=== PATIENT | female | born 1950 | race Caucasian/White ===

== ENCOUNTER 2018-09-29 01:42 | Outpatient (CLI) | payer MEDICARE, OTHER, SELFPAY ==
--- NOTE | 2018-09-29 11:30 | DI.MAMMO_ITS ---
SYMPTOM/DIAGNOSIS: SCREENING Z12.31 MAMMOGRAMS: Mammograms were interpreted according to the usual protocol including computer analysis with CAD system, tomosynthesis and C view imaging. Comparison with prior examinations. Breast density B. No suspicious masses or microcalcifications are seen. There is no definite evidence of malignancy. IMPRESSION: Negative mammogram. Routine screening is recommended. Category 1, breast density B. SA ASSESSMENT OF FINDINGS: Negative. Category 1. Patient will receive a letter notifying them of these results. BI-RADS category B. There are scattered areas of fibroglandular density.
== END 2018-09-29 02:02 ==
PROVIDERS: Visit Provider Nurse Practitioner Family
DX: Z12.31 Encounter for screening mammogram for malignant neoplasm of breast (principal)
CPT/HCPCS: 77063; 77067

== ENCOUNTER → 2019-11-26 08:31 | Outpatient (BNVA) | payer MEDICARE, OTHER, SELFPAY | PROVIDERS: Visit Provider Student in an Organized Health Care Education/Training Program | DX: M25.562 Pain in left knee (principal); M17.12 Unilateral primary osteoarthritis, left knee; M21.062 Valgus deformity, not elsewhere classified, left knee | CPT/HCPCS: 20610; 99203; J1040 ==

== ENCOUNTER 2020-02-09 14:19 | Outpatient (CLI) | payer MEDICARE, OTHER, SELFPAY ==
--- NOTE | 2020-02-09 14:10 | DI.RAD_ITS ---
EXAM: XR STANDING ALIGNMENT CLINICAL HISTORY: pre op TECHNIQUE: 2D digital imaging was performed. COMPARISON: No exams were available for comparison FINDINGS: Standing AP views were performed from the pelvis through the ankles. There are severe degenerative c hanges of the lateral femoral tibial joint of the left knee causing prominent valgus angulation. The re are milder degenerative changes of the right knee as well as both hips and ankles. There is a leg length discrepancy at the level of the femoral heads, with the right femoral head projecting approxi mately 1 cm superior to the left. IMPRESSION: Severe degenerative changes of the lateral femoral tibial joint of the left knee with valgus angulati on..
== END 2020-02-09 14:39 ==
PROVIDERS: PCP Family Medicine; Referring Provider Family Medicine; Visit Provider Physician Assistant
DX: M17.12 Unilateral primary osteoarthritis, left knee (principal); M21.751 Unequal limb length (acquired), right femur
CPT/HCPCS: 77073

== ENCOUNTER 2020-02-12 01:40 | Outpatient (CLI) | payer MEDICARE, OTHER, SELFPAY ==
[2020-02-12 13:52] LABS: HCT 42.8 % (36.0-46.0); HGB 14.6 g/dL (11.2-15.7); MCH 32.7 pg (27.0-33.0); MCHC 34.1 % (32.0-36.0); MCV 95.7 fL (80-95); MPV 8.8 fL (8.0-11.0); Platelet Count 301 10^3/uL (130-400); RBC 4.47 10^6/uL (3.93-5.22); RDW 11.7 % (11.7-14.6); RDW-SD 41.1 fL; WBC 6.83 10^3/uL (4.4-10.8)
[2020-02-12 14:31] LABS: Anion Gap 4.6 mmol/L (3-11); BUN 18 mg/dL (7-18); CO2 31.4 mmol/L (21.0-32.0); CREATININE 0.66 mg/dL (0.55-1.02); Chloride 106 mmol/L (98-107); Glucose 104 mg/dL (74-106); Potassium 3.7 mmol/L (3.5-5.1); Sodium 142 mmol/L (136-145)
== END 2020-02-12 02:00 ==
PROVIDERS: PCP Family Medicine; Visit Provider Student in an Organized Health Care Education/Training Program
DX: Z01.818 Encounter for other preprocedural examination (principal); Z11.59 Encounter for screening for other viral diseases; M17.12 Unilateral primary osteoarthritis, left knee
CPT/HCPCS: 36415; 80048; 85027; U0003

== ENCOUNTER 2020-02-17 07:22 | Observation (INO) | payer MEDICARE, OTHER, SELFPAY ==
[2020-02-17] VITALS (13 sets, daily range): BP systolic 88–121; BP diastolic 49–66; PULSE 65–84; RESP 9–21; TEMP 36.1–37.1; O2SAT 94–99
[2020-02-17] MEDS: Celecoxib 200 MG CAP 400 MG PO (08:13)
[2020-02-17] MEDS: Gabapentin 300 MG CAP PO ×2 (08:13→21:47)
[2020-02-17] MEDS: Acetaminophen 500 MG TAB 1000 MG PO ×3 (08:14→19:34)
[2020-02-17] MEDS: Lactated Ringers 1,000 ML 80 ML IV ×3 (08:35→17:40)
--- NOTE | 2020-02-17 09:25 | DSE_ITS ---
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 The surgery was tolerated well without any notable medical, surgical, or anesthetic complications. Mobilization began post-operatively. They were voiding spontan eously. Vitals were stable. Physical therapy worked with the patient and was cleared for discharge home. No acute medical issues. Pain was controlled on oral regimen. Home Meds and New Rx's Prescriptions: New acetaminophen 500 mg tablet 1,000 mg PO Q8H PRN (Reason: pain) Qty: 60 RF: 2 aspirin 81 mg tablet,delayed release (DR/EC) 81 mg PO BID 30 Days Qty: 60 RF: 0 celecoxib [Celebrex] 200 mg capsule 200 mg PO BID Qty: 60 RF: 1 docusate sodium [Colace] 100 mg capsule 100 mg PO BID Qty: 30 RF: 0 oxycodone 5 mg tablet 5 mg PO Q4H PRN (Reason: severe post-operative pain) Qty: 18 RF: 0 pantoprazole 40 mg tablet,delayed release (DR/EC) 40 mg PO DAILY Qty: 30 RF: 0 Continued Move Free Joint Health 1 EACH tablet 2 ea PO DAILY RF: 0 Discharge Instructions Additional Instructions: Total Knee Discharge Instructions Activity: The most important activity is to walk. You should try to take short walks a few times a day. It is important that when resting you work on keeping the knee straight. Avoid putting a pillow behind the knee as this will encourage flexion. Work on range of motion exercises as provided by Physical Therapy. - Start outpatient physical therapy within 2 weeks. - You should wear the HERACLIO hose on both legs for 2 weeks. Dressing: Keep the surgical dressing in place for at least one week. After the first week it may be removed and replace with light gauze and tape or nothing. It may get wet after 3 days but avoid soaking the dressing. If it gets wet, just lightly pat dry. Medications: - You should take Tylenol and anti-inflammatory Celebrex as your primary pain control medications. If the Celebrex is too expensive or not covered, you may take Naproxen (Aleve) two tabs twice a day in its place. - You have been prescribed a stronger pain medication Oxycodone for breakthrough pain, take as needed as prescribed. - You have also been prescribed a stomach acid reduction agent Pantoprozole to help reduce stomach acid and reflux. - You will be taking Aspirin 81mg twice a day for DVT prevention unless instructed otherwise. - If you have constipation you should take Colace or Miralax (both [id number]). It takes most people 3-4 days to have a bowel movement. Follow-up: 2 weeks. If you have any acute concerns or questions, please do not hesitate to contact the office at [phone]. You may contact Dr. Dey with any questions after hours through the hospital at [phone] or on his cell phone at [phone]. Referrals: Dung Dey MD [ [facility] STAFF PHYSICIAN] - 03/04/20 9:00 am Activity:: Activity as Tolerated Equipment/Supplies:: Walker Diet:: As Tolerated Discharge Orders Discharge Orders: Discharge Order (Routine); Ordered 02/17/20 Ordered By: Dung Dey DS: Data Vitals/I&O Vitals and I&O: Vital Signs Temperature 36.3 C L 02/17/20 07:37 Pulse 67 02/17/20 07:37 Pulse Rhythm Regular 02/17/20 07:37 Respiratory Rate 16 02/17/20 07:37 Respiratory Effort 02/17/20 07:37 Respiratory Depth Normal 02/17/20 07:37 Respiratory Pattern Normal 02/17/20 07:37 Blood Pressure 121/66 02/17/20 07:37 Pulse Oximetry 98 02/17/20 07:37 Oxygen Delivery Method Room Air 02/17/20 07:37 Oxygen Flow Rate 0 02/17/20 07:37 Pain Level 0 02/17/20 07:37 Intake & Output 02/16/20 02/16/20 02/17/20 11:59 23:59 11:59 Weight 70.1 kg Other: Urine Appearance Clear PFSH Surgical History Appendectomy Hx of colonoscopy Ligation of fallopian tube Status post abdominoplasty Status post plastic surgery Bilateral thighplasty Family History Mother No problems noted. Father Pancreatic cancer Diabetes Parkinsons disease Social History Smoking/Tobacco Use Status: Never Smoking risk assessment performed?: Yes Alcohol Intake: current Alcohol Intake frequency: holidays/special occasions only Drug use: Never Substance use type: does not use current occupation: retired - banker History History 3 Para 3 Hx # Term Pregnancies Multiple births Hx # Pregnancies Ectopic pregnancies AB induced Hx Number of Living Children AB spontaneous Documented by User: Dung Dey MD 02/17/20 15:24 Date of service: 02/17/20 Time of Service: 15:22 Discharge Plan Disposition Patient Disposition: HOME Condition: Good Discharge Details Reason For Visit: Left TKA Admit Date/Time: 02/17/20 07:21 Admit Provider: Dung Dey Attending Provider: Dung Dey Primary Care Provider: Mariaelena Florez [facility] Course Hospital Course: Patient was admitted to the day surgery unit following the procedure. The surgery was tolerated well without any notable medical, surgical, or anesthetic complications. Mobilization began post-operatively. They were voiding spontaneously. Vitals were stable. Physical therapy worked with the patient and was cleared for discharge home. No acute medical issues. Pain was controlled on oral regimen. Home Meds and New Rx's Prescriptions: New acetaminophen 500 mg tablet 1,000 mg PO Q8H PRN (Reason: pain) Qty: 60 RF: 2 aspirin 81 mg tablet,delayed release (DR/EC) 81 mg PO BID 30 Days Qty: 60 RF: 0 celecoxib [Celebrex] 200 mg capsule 200 mg PO BID Qty: 60 RF: 1 docusate sodium [Colace] 100 mg capsule 100 mg PO BID Qty: 30 RF: 0 oxycodone 5 mg tablet 5 mg PO Q4H PRN (Reason: severe post-operative pain) Qty: 18 RF: 0 pantoprazole 40 mg tablet,delayed release (DR/EC) 40 mg PO DAILY Qty: 30 RF: 0 Continued Move Free Joint Health 1 EACH tablet 2 ea PO DAILY RF: 0 Discharge Instructions Additional Instructions: Total Knee Discharge Instructions Activity: The most important activity is to walk. You should try to take short walks a few times a day. It is important that when resting you work on keeping the knee straight. Avoid putting a pillow behind the knee as this will encourage flexion. Work on range of motion exercises as provided by Physical Therapy. - Start outpatient physical therapy within 2 weeks. - You should wear the HERACLIO hose on both legs for 2 weeks. Dressing: Keep the surgical dressing in place for at least one week. After the first week it may be removed and replace with light gauze and tape or nothing. It may get wet after 3 days but avoid soaking the dressing. If it gets wet, just lightly pat dry. Medications: - You should take Tylenol and anti-inflammatory Celebrex as your primary pain control medications. If the Celebrex is too expensive or not covered, you may take Naproxen (Aleve) two tabs twice a day in its place. - You have been prescribed a stronger pain medication Oxycodone for breakthrough pain, take as needed as prescribed. - You have also been prescribed a stomach acid reduction agent Pantoprozole to help reduce stomach acid and reflux. - You will be taking Aspirin 81mg twice a day for DVT prevention unless instructed otherwise. - If you have constipation you should take Colace or Miralax (both [id number]). It takes most people 3-4 days to have a bowel movement. Follow-up: 2 weeks. If you have any acute concerns or questions, please do not hesitate to contact the office at [phone]. You may contact Dr. Dey with any questions after hours through the hospital at [phone] or on his cell phone at [phone]. Referrals: Dung Dey MD [ [facility] STAFF PHYSICIAN] - 03/04/20 9:00 am Activity:: Activity as Tolerated Equipment/Supplies:: Walker Diet:: As Tolerated Discharge Orders Discharge Orders: Discharge Order (Routine); Ordered 02/17/20 Ordered By: Dung Dey DS: Summary Status at Discharge Functional status at discharge: uses cane/walker Overall status at discharge: patient is progressing back to baseline Mental Status: mental status grossly normal Speech and Movement: speech and movement normal Mood: congruent mood Affect: normal affect Exam Psych Mental Status: mental status grossly normal Speech and Movement: speech and movement normal Mood: congruent mood Affect: normal affect [facility] Surgical History Appendectomy Hx of colonoscopy Ligation of fallopian tube Status post abdominoplasty Status post plastic surgery Bilateral thighplasty Family History Mother No problems noted. Father Pancreatic cancer Diabetes Parkinsons disease Social History Smoking/Tobacco Use Status: Never Smoking risk assessment performed?: Yes Alcohol Intake: current Alcohol Intake frequency: holidays/special occasions only Drug use: Never Substance use type: does not use current occupation: retired - banker History History 3 Para 3 Hx # Term Pregnancies Multiple births Hx # Pregnancies Ectopic pregnancies AB induced Hx Number of Living Children AB spontaneous
[2020-02-17] MEDS: Bupivacaine 0.25% Pres-Free 10 ML VIAL (09:29)
[2020-02-17] MEDS: ceFAZolin 2 GM/50 ML BAG IVPB (09:59)
[2020-02-17] MEDS: Bupivacaine 0.25% Pres-Free 30 ML VIAL (11:31)
[2020-02-17] MEDS: Ketorolac 30 MG/ML VIAL (11:31)
[2020-02-17] MEDS: Normal Saline 20 ML VIAL (11:31)
--- NOTE | 2020-02-17 13:30 | NUR.NOTE ---
Nursing Note: 02/17/20 1330- pt alert and oriented x 3. Hr reg, lscta, positive bs x 4. Positive csmt, positive pp ble. Pt denies chest pain/ pressure. Pt denies sob/ nausea. VSS. TEDS on right leg, dressing with jessica wrap CDI l leg. Pt arrived to [facility]SU room 215 at 1320. in to see patient shortly after arrival. cryo cuff on l knee.
[2020-02-17] MEDS: ceFAZolin 1 GM/50 ML BAG IVPB (15:28)
--- NOTE | 2020-02-17 15:50 | IN_ITS ---
Date of service: 02/17/20 Time of Service: 15:51 PT Notes Visit Reasons: Left TKA Date: 02/17/2020 Referring: Dung Dye MD MD diagnosis: Status post left TKA PT diagnosis: Status post left TKA Subjective: Alert and oriented x3, with complaints of nausea after walking 100 feet. This resolved with rest. Objective: 61-year-old female with osteoarthritis of left knee status post left total knee replacement earlier today. Functional mobility: Independent with assuming the supine to sitting to standing positions Gait: Ambulated approximately 200 feet with a wheeled walker weightbearing as tolerated on her left lower extremity. She ascended and descended 4 steps with a railing. Articular: Her active assistive left knee motion is nonirritable and her range is -10 degrees of extension to 100 degrees of flexion following mobilization. Her internal rotations at 10 degrees and external rotation at 30 degrees. She is nonirritable left hip, talocrural subtalar movements. Strength: She is able to form concentric left straight leg raise with approximately 10 degree extension lag. Social: , retired for 7 years, has a winter home in [place]. Lives in a two-story home in her bedroom is on the second floor. She has a railing on the stairs. She is independent with all ADLs including driving prior to her surgery. Neuro: Has full motor control left lower extremity with diminished sensation light touch to her left foot due to to the anesthesia. Treatment: 9716 Assessment: Patient is a 69-year-old female referred for PT services diagnosis of left TKA. Patient presents with clinical signs and symptoms consistent. She did well with her mobility activities and gait and range of motion about to 100 degrees of flexion. Short-term goals: 6 weeks Increase range of motion of the left knee from -10 to 120 degrees Improve dynamic stability of the left lower leg in order to normalize her gait mechanics without an assistive device Independent all ADLs Long-term goals: 12 weeks Improve her quality of life Plan: Today's session consisted of evaluation, patient education, manual mobilization of the left knee along with issuing her written illustrated home exercise program consisting of gentle stretching into left knee extension flexion, supine straight leg raises, quad/gluteal sets and ankle pumping. Keep her leg elevated over the next 3 days and walk for short distances as tolerated. She will pursue physical therapy at home. DC from our service. Disclaimer: This note was created using [employer] voice recognition software. It was reviewed for major content. However, there may be multiple small discrepancies and errors due to the voice recognition aspects of the software. Please sign and return this document to [facility] as soon as possible if you agree with the above POC. Thank you. Provider Signature Date [facility]
--- NOTE | 2020-02-17 18:42 | W.PM.OP ---
Date of service: 02/17/20 Time of Service: 12:05 Operative Note Operative Note DATE OF PROCEDURE: 02/17/20 PRE-OP DIAGNOSIS: Left Knee DJD with Valgus Deformity POST-OP DIAGNOSIS: same PROCEDURE: Left Total Knee Arthroplasty with Intraoperative Navigation SURGEON: Dung Dey CLOTHING PATTERN PREPARER: Anabelle Pollock ANESTHESIA: GETA and regional ESTIMATED BLOOD LOSS: 300 PATHOLOGY: none sent TOURNIQUET TIME: 30 COMPLICATIONS: None Patient was transported to: PACU Patient's condition: stable Implants: 1. Depuy Attune Posterior Stabilized Femoral Component, Size 6 Narrow 2. Depuy Attune Fixed Platform Tibial Component, Size 4 3. Depuy Attune 6x10 Fixed, Stabilized Poly 4. Depuy Attune Patellar Component, Size 35mm Indications: I have seen Diane in clinic for symptoms of knee arthritis, confirmed with radiographic findings. Diane has exhausted nonoperative methods and was having significant limitations in daily function and desired better function and less pain. I discussed the technical details of a knee replacement. I explained the risks of the procedure to include, but not limited to, bleeding, infection, pain, stiffness, fracture, damage to nerves and vessels, damage to muscles and tendons, loosening, need for repeat procedure, blood clot and cardiopulmonary demise. Despite these risks, she elected to proceed. Findings: There was significant signs of arthritis throughout the knee. Procedure Description: Diane was greeted in the preoperative holding area where the correct side was identified and marked. The consent was reviewed with the patient and signed. The history and physical was updated. All questions were answered. Preoperative mediacations were administered: Acetaminophen 1000mg, Celebrex 400mg, Gabapentin 300mg. An adductor canal block was then administered by the anesthesia team in the PACU. Diane was taken back to the operating room. A spinal anesthestic was then attempted but unsuccessful, so a general anesthetic was administered. The patient was placed into the supine position on the operating room table. A nonsterile tourniquet was placed high onto the leg but only used for cementing. Posts were placed for positioning during the procedure. All bony prominences were well padded. Prophylactic antibiotics in the form of Cefazolin were administered. 1g of Tranxemic Acid was given intravenously within 30 minutes of incision. The left leg was then prepped with Chloraprep and draped in a standard fashion with impervious stockinette and extremity drape with Iodine impregnated skin protection. A timeout to confirm correct identity, side and site, procedure, allergies, anesthesia, and medical concerns was performed. With the knee in some flexion, a midline incision was made overlying the knee. Full thickness skin flaps were raised once the extensor mechanism was encountered. These were raised medially and laterally. Any bleeding was controlled with electrocautery. Once the extensor mechanism was fully exposed, a medial parapatellar arthrotomy was performed in a flexed position. All bleeding from the arthrotomy and the geniculate arteries was coagulated. A medial subperiosteal peel was performed with electrocautery to the midcoronal plane. The fat pad was removed while keeping the patellar tendon protected. The anterior distal femur synovium was removed for later visualization. The ACL and PCL were resected and the anterior horn of the lateral meniscus was transected. The knee was then flexed with the patella everted. Large osteophytes from the tibia were removed. Large osteophytes from the femur were removed. There was some hypoplasia of the lateral femoral condyle and any remnant cartilage of the medial femoral condyle was removed for appropriate thickness. A single starting pin was then placed 1cm anterior to the PCL insertion and the notch in the direction of the femoral head. The OrthoAlign device was applied over the pin. It was oriented to be in line with the epicondylar axis and the trochlear groove. It was then pinned into place. The navigation computer was then turned on and calibrated. The distal femur cut was set at 0 degrees varus/valgus and 2.5 degrees flexion. The distal femur cutting guide then was positioned for a 9mm cut. The distal femur was cut with an oscillating saw while protecting the soft tissues. The tibia was then addressed. The OrthoAlign device was placed over the tibial tubercle and medial tibia and secured into position. Once again, OrthoAlign was calibrated and then set for a 0 degree varus/valgus cut and 3 degrees of posterior slope. With this locked into position, the cut thickness stylus was used to assess cut thickness. The lateral side was set for a 6mm cut which corresponded to 8mm medially. This was then held in position and pinned into place with 2 additional pins and a cross pin for stability. The medial and lateral collateral ligaments were protected and the cut was performed. With this completed, it was assessed and noted to be of appropriate dimensions. The guide and OrthoAlign was removed. A spacer block was inserted and the knee was brought into extension. The 8mm spacer block provided full extension, without hyperextension and with stability of both the medial and lateral collateral ligaments was assessed. The pins from the femur and the tibia were then removed. The distal femur was then sized. The anterior stylus was placed onto the lateral ridge of the anterior femur. This indicated a size 6 Narrow femur. The external rotation of the guide was adjusted to 3 degrees to match the epicondylar axis, perpendicular to Hatillo?s line. The 4-in-1 cutting guide was the placed. The posterior medial femur cut was evaluated and appeared of good thickness. The spacer block was inserted underneath the cutting guide and stability was confirmed in 90 degrees of flexion. An edward wing was used to confirm appropriate position of the anterior cut to avoid notching. This cutting guide was ensured to be flush on the cut surface and then pinned into place with headed pins. While protecting the soft tissues, quad tendon, and collateral ligaments, the anterior and posterior cuts were performed with a saw. The central two pins were removed and the posterior and anterior chamfers were cut next. The notch-cutting guide was placed. This was pinned to lateralize the femoral component as much as possible while keeping it flush on the cut surface. This was then pinned into position. A reciprocating saw was used to make the notch cut. A rasp smoothed the cut surfaces. A trial posterior stabilized femoral component was then inserted, impacted down to the cut surfaces, and the lug holes were drilled. A provisional trial tibial component was placed and the knee was brought through range of motion. The polyethylene was trialed until there was good flexion and extension with excellent stability to the medial and lateral collaterals. The patella was tracking without thumbs. The tibial cut surface was fully exposed. The medial and lateral menisci were removed. The tibia was then sized as a 4. The tibia had been previously marked during trialing to correspond to the center of the tibial component to help with rotation. The trial was aligned to this rosalva, approximately rotated to the medial 1/3rd of the tibial tubercle. The trial was pinned into place. The tibia was prepared with a reamer and a keel punch. The knee was then brought into extension and the patella was measured as 23mm. Using the patellar clamp and cut guide, this was resected to a flat surface with at least 13mm of thickness remaining. The size 35 patella fit the best. This was oriented and then clamped into position. The lugs were drilled. The trial components were removed. The final components, except for the polyethylene were opened on the back table. The periosteal and capsular tissues, especially posteriorly, around the knee were then systematically injected with a periarticular cocktail consisting of 50cc 0.25% Marcaine, 30mg Ketorolac, 20cc of Exparal and 50cc of injectable saline. The tourniquet was then inflated to 275mmHg. The knee was thoroughly irrigated with a pulse lavage and dried. On the back table, with the implants opened, the cement was mixed. 2 batches of antibiotic laden cement were prepared with vacuum assistance. After the cement was ready a small amount was placed on to the back side of the tibial component at the keel. A small amount was placed onto the posterior flange of the femur. Cement was manual pressurized and impregnated into the cut surface of the tibia. The tibial component was then inserted into the cut surface and impacted into position. Excess cement was removed and the component was reimpacted. Again, excess cement was removed and our attention was then turned to the femur. The femoral cut surface was once again dried and cement was manually impacted into the cut surface. The femoral component was lined with the lug holes and impacted. Excess cement was removed. It was ensured to be down against the cut surface. The trial polyethylene was then inserted and the leg was brought out into full extension for the duration of the cement curing process, approximately 15min. Cement was lastly manually impacted into the cut surface of the patella and the patellar button was clamped into position and held. During this process attention was turned to the gutters of the knee and for all interfaces for any excess cement. After the cement had finally cured, approximately 15min, the clamp was removed from the patella and the knee was taken through range of motion. A size 10mm polyethylene component provided the best range of motion and stability with less than 2mm gapping with medial and lateral stress and full extension without significant hyperextension. The patella was tracking with a no-thumbs technique. The trial poly was removed and once again the knee was checked for any loose, excess, or errant cement. The poly component was then inserted and impacted into position after cleaning and drying the tibial tray. The capsule was then reapproximated with a No. 1 Vicryl at multiple locations. The capsule was finally closed with a No. 2 Stratafix, barbed suture. The tourniquet was then released and the arthrotomy appeared watertight without significant bleeding. The second dosing of 1g TXA was started. Deep tissues were then reapproximated with 0 Vicryl and 2-0 Vicryl. The skin was closed with a running 3-0 Monocryl in a subcuticular fashion. This was reinforced with skin glue. A Mepilex silver dressing was applied along with a [id number] ANTONIO wrap. A CryoCuff was applied. Diane was transferred to the hospital bed without difficulty an suffering no apparent complication. Diane has a good prognosis. Physical therapy will start today and without restrictions, weight-bearing as tolerated. Aspirin 81mg BID will be used for DVT prophylaxis.
[2020-02-17] MEDS: Celecoxib 200 MG CAP PO (19:34)
[2020-02-17] MEDS: Aspirin E.C. 81 MG TABEC PO (19:34)
[2020-02-18 03:35] VITALS: BP 103/65; PULSE 75; RESP 17; TEMP 36.9; O2SAT 96
[2020-02-18] MEDS: ceFAZolin 1 GM/50 ML BAG IVPB ×2 (03:46→10:07)
[2020-02-18] MEDS: Lactated Ringers 1,000 ML 80 ML IV (05:11)
[2020-02-18 07:45] VITALS: BP 122/58; PULSE 69; RESP 17; TEMP 36.8; O2SAT 96
--- NOTE | 2020-02-18 08:03 | W.PM.PROGNOT ---
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 She was going to leave yesterday but developed some lightheadedness and nausea. She did have emesis x1 yesterday but since has done much better. She denies any symptoms this morning. She does have some pain which is controlled currently with oral pain meds and she is anxious to discharge to home. Nursing may remove the Daniel wrap prior to discharge and place the HERACLIO hose on the operative leg. Subjective Subjective Interval history since last seen: Diane reports to be doing much better. She did have emesis x1 yesterday and since that felt better. She has been able to ambulate with minimal assistance. However, she has had increase in pain. She otherwise denies any chest pain or shortness of breath. No persistent nausea this morning. Exam Narrative Exam Narrative: Sitting up in the chair. No acute distress. Alert and x3. Evaluation of the right lower extremity shows a dressing which is clean dry and intact. She is able to straight leg raise. She is sitting in about 10 degrees of flexion. Intact ankle dorsiflexion, plantarflexion, EHL, FHL. Sensation intact light touch over the deep and superficial peroneal nerves and tibial nerve. Objective Last Vital Signs Temp 36.9 C 02/18/20 03:35 Pulse 75 02/18/20 03:35 Resp 17 02/18/20 03:35 BP 103/65 02/18/20 03:35 Pulse Ox 96 02/18/20 03:35
[2020-02-18] MEDS: Acetaminophen 500 MG TAB 1000 MG PO (08:14)
[2020-02-18] MEDS: Aspirin E.C. 81 MG TABEC PO (08:14)
[2020-02-18] MEDS: Pantoprazole 40 MG TABCR PO (08:15)
[2020-02-18] MEDS: Celecoxib 200 MG CAP PO (08:15)
== END 2020-02-18 12:04 | disposition home or self-care (01) ==
LOC: PDS 09:25 → MS 17:42 → PDS 02-18 09:47 → MS 02-18 09:48
PROVIDERS: Admitting Provider Student in an Organized Health Care Education/Training Program; PCP Family Medicine; Visit Provider Student in an Organized Health Care Education/Training Program
PROC: (CPT 27447; principal; 2020-02-17 10:00)
DX: M17.12 Unilateral primary osteoarthritis, left knee (principal); M21.062 Valgus deformity, not elsewhere classified, left knee; K21.9 Gastro-esophageal reflux disease without esophagitis
CPT/HCPCS: 27447; 20985; 76942; 97140; 97162; NC; G0378; J0690; J1885; J2001; J2250; J2405; J3010

== ENCOUNTER 2020-03-04 10:11 | Outpatient (CLI) | payer MEDICARE, OTHER, SELFPAY ==
--- NOTE | 2020-03-04 09:15 | DI.RAD_ITS ---
EXAM: XR STANDING ALIGNMENT and XR knee LT 1 of the CLINICAL HISTORY: post op. TECHNIQUE: 2D digital imaging was performed. COMPARISON: CR XR STANDING ALIGNMENT from 02/09/2020 FINDINGS: BONES: Since the prior examination the patient has undergone a left total knee replacement. There ar e stable post operative changes present. No fracture or dislocation. The right lower extremity measu res 90.6 cm. The left lower extremity measures 88.8 cm. JOINTS: The joint spaces are well maintained. No joint effusion is present. SOFT TISSUE: Normal. IMPRESSION: Stable postoperative changes. DATA REPOSITORY: RADIATION DOSE DELIVERED:
== END 2020-03-04 10:31 ==
PROVIDERS: PCP Family Medicine; Referring Provider Family Medicine; Visit Provider Student in an Organized Health Care Education/Training Program
DX: Z96.652 Presence of left artificial knee joint (principal); Z47.1 Aftercare following joint replacement surgery
CPT/HCPCS: 73560; 77073

== ENCOUNTER → 2020-04-01 09:10 | Outpatient (BNVA) | payer MEDICARE, OTHER, SELFPAY | PROVIDERS: PCP Family Medicine; Referring Provider Family Medicine; Visit Provider Student in an Organized Health Care Education/Training Program | DX: Z47.1 Aftercare following joint replacement surgery; Z96.652 Presence of left artificial knee joint ==

== ENCOUNTER → 2020-05-13 10:28 | Outpatient (BNVA) | payer MEDICARE, OTHER, SELFPAY | PROVIDERS: PCP Family Medicine; Referring Provider Family Medicine; Visit Provider Student in an Organized Health Care Education/Training Program | DX: Z47.1 Aftercare following joint replacement surgery (principal); Z96.652 Presence of left artificial knee joint ==

== ENCOUNTER 2021-03-13 14:18 | Outpatient (CLI) | payer MEDICARE, OTHER, SELFPAY ==
--- NOTE | 2021-03-13 13:00 | DI.RAD_ITS ---
Exam(s) XR KNEE LT 2V AP,LAT EXAM: XR KNEE LT 2V AP,LAT INDICATION: annual f/u ltka. COMPARISON: CR XR KNEE LT 1V from 03/04/2020 TECHNIQUE: 2D digital imaging was performed. FINDINGS: There has been no change in the left total knee prosthesis or appearance of the surrounding bone. DATA REPOSITORY: RADIATION DOSE DELIVERED:
== END 2021-03-13 14:19 | disposition home or self-care (01) ==
LOC: DIORS 14:18
PROVIDERS: PCP Family Medicine; Referring Provider Family Medicine; Visit Provider Student in an Organized Health Care Education/Training Program
DX: Z96.652 Presence of left artificial knee joint (principal); Z47.1 Aftercare following joint replacement surgery
CPT/HCPCS: 99212; 73560

== ENCOUNTER 2022-03-05 14:43 | Outpatient (CLI) | payer MEDICARE, OTHER, SELFPAY ==
--- NOTE | 2022-03-05 14:30 | DI.RAD_ITS ---
Exam(s) XR KNEE LT 2V AP,LAT EXAM: XR KNEE LT 2V AP,LAT INDICATION: follow up. COMPARISON: CR XR KNEE LT 2V AP,LAT from 03/13/2021 TECHNIQUE: 2D digital imaging was performed. Two views. FINDINGS: There has been no change in the alignment of the total knee prosthesis or appearance of the surroundi ng bone. No abnormal lucencies are seen. A small joint effusion is noted. DATA REPOSITORY: RADIATION DOSE DELIVERED:
== END 2022-03-05 14:44 | disposition home or self-care (01) ==
LOC: DIORS 14:44
PROVIDERS: PCP Family Medicine; Referring Provider Family Medicine; Visit Provider Physician Assistant Surgical
DX: Z96.652 Presence of left artificial knee joint (principal)
CPT/HCPCS: 99213; 73560

== ENCOUNTER 2024-01-01 07:49 | Outpatient (RCR) | payer MEDICARE, SELFPAY ==
[2024-01-01] MEDS: Normal Saline Flush 10 ML SYR IVP (08:24)
[2024-01-01 08:46] LABS: Abs Immature Grans 0.01 10^3/uL (0.0-0.06); Absolute Basophil Count 0.04 10^3/uL (0.0-0.2); Absolute Eosinophil Count 0.07 10^3/uL (0.0-0.7); Absolute Lymphocyte Count 0.96 10^3/uL (1.2-3.4); Absolute Monocyte Count 0.36 10^3/uL (0.1-0.8); Absolute Neutrophil Count 1.59 10^3/uL (1.2-6.7); Basophils % 1.3 %; Eosinophils % 2.3 %; HCT 38.6 % (36.0-46.0); HGB 13.4 g/dL (11.2-15.7); Immature Grans % 0.3 %; Lymphocytes % 31.7 %; MCHC 34.7 % (32.0-36.0); MCV 95 fL (80-95); Monocytes % 11.9 %; Neutrophils % 52.5 %; Platelet Count 235 10^3/uL (130-400); RBC 4.06 10^6/uL (3.93-5.22); RDW 12.8 % (11.7-14.6); RDW-SD 43.7 fL; WBC 3.03 10^3/uL (4.4-10.8)
[2024-01-01 09:11] LABS: ALT 26 U/L (14-59); AST 22 U/L (15-37); Albumin 3.6 g/dL (3.4-5.0); Alkaline Phosphatase 71 U/L (46-116); Anion Gap 10.5 mmol/L (3-11); BUN 19 mg/dL (7-18); Bilirubin, Total 0.87 mg/dL (0.2-1.0); CO2 24.5 mmol/L (21.0-32.0); CREATININE 0.8 mg/dL (0.55-1.02); Calcium 8.7 mg/dL (8.5-10.1); Chloride 105 mmol/L (98-107); Estimated GFR 78.24 (mL/min/1.73m2); Glucose 75 mg/dL (74-106); Sodium 140 mmol/L (136-145); Total Protein 6.8 g/dL (6.4-8.2)
== END 2024-01-20 23:59 | disposition home or self-care (01) ==
LOC: INF 07:49
PROVIDERS: Physician Assistant Medical; PCP Family Medicine; Visit Provider Internal Medicine
DX: C50.511 Malignant neoplasm of lower-outer quadrant of right female breast (principal); Z17.0 Estrogen receptor positive status [ER+]; Z79.899 Other long term (current) drug therapy
CPT/HCPCS: 36591; 80053; 85025

== ENCOUNTER 2024-02-12 10:30 | Outpatient (RCR) | payer MEDICARE, SELFPAY ==
[2024-01-22 08:54] LABS: Abs Immature Grans 0.02 10^3/uL (0.0-0.06); Absolute Basophil Count 0.04 10^3/uL (0.0-0.2); Absolute Eosinophil Count 0.01 10^3/uL (0.0-0.7); Absolute Lymphocyte Count 0.71 10^3/uL (1.2-3.4); Absolute Monocyte Count 0.43 10^3/uL (0.1-0.8); Absolute Neutrophil Count 4.02 10^3/uL (1.2-6.7); Basophils % 0.8 %; Eosinophils % 0.2 %; HCT 39.2 % (36.0-46.0); HGB 13.2 g/dL (11.2-15.7); Immature Grans % 0.4 %; Lymphocytes % 13.6 %; MCH 33.1 pg (27.0-33.0); MCHC 33.7 % (32.0-36.0); MCV 98 fL (80-95); Monocytes % 8.2 %; Neutrophils % 76.8 %; Platelet Count 302 10^3/uL (130-400); RBC 3.99 10^6/uL (3.93-5.22); RDW 13.4 % (11.7-14.6); WBC 5.23 10^3/uL (4.4-10.8)
[2024-01-22 09:11] LABS: ALT 27 U/L (14-59); AST 20 U/L (15-37); Albumin 3.6 g/dL (3.4-5.0); Alkaline Phosphatase 69 U/L (46-116); Anion Gap 7.1 mmol/L (3-11); BUN 22 mg/dL (7-18); Bilirubin, Total 0.65 mg/dL (0.2-1.0); CO2 26.9 mmol/L (21.0-32.0); CREATININE 0.8 mg/dL (0.55-1.02); Calcium 8.9 mg/dL (8.5-10.1); Chloride 104 mmol/L (98-107); Estimated GFR 78.24 (mL/min/1.73m2); Glucose 83 mg/dL (74-106); Potassium 3.9 mmol/L (3.5-5.1); Sodium 138 mmol/L (136-145); Total Protein 6.9 g/dL (6.4-8.2)
[2024-01-22] MEDS: Normal Saline Flush 10 ML SYR IVP (10:09)
[2024-02-12] MEDS: Normal Saline Flush 10 ML SYR IVP (11:02)
[2024-02-12 11:19] LABS: Abs Immature Grans 0.01 10^3/uL (0.0-0.06); Absolute Basophil Count 0.05 10^3/uL (0.0-0.2); Absolute Eosinophil Count 0.06 10^3/uL (0.0-0.7); Absolute Monocyte Count 0.36 10^3/uL (0.1-0.8); Absolute Neutrophil Count 2.86 10^3/uL (1.2-6.7); Basophils % 1.3 %; Eosinophils % 1.5 %; HCT 36.2 % (36.0-46.0); HGB 12.2 g/dL (11.2-15.7); Immature Grans % 0.3 %; Lymphocytes % 15.2 %; MCH 33.5 pg (27.0-33.0); MCHC 33.7 % (32.0-36.0); MCV 100 fL (80-95); Monocytes % 9.1 %; Neutrophils % 72.6 %; Platelet Count 301 10^3/uL (130-400); RBC 3.64 10^6/uL (3.93-5.22); RDW 14.9 % (11.7-14.6); RDW-SD 54.7 fL; WBC 3.94 10^3/uL (4.4-10.8)
[2024-02-12 11:33] LABS: ALT 24 U/L (14-59); AST 20 U/L (15-37); Albumin 3.3 g/dL (3.4-5.0); Alkaline Phosphatase 66 U/L (46-116); Anion Gap 6.1 mmol/L (3-11); BUN 16 mg/dL (7-18); Bilirubin, Total 0.72 mg/dL (0.2-1.0); CO2 27.9 mmol/L (21.0-32.0); CREATININE 0.7 mg/dL (0.55-1.02); Calcium 8.7 mg/dL (8.5-10.1); Chloride 109 mmol/L (98-107); Estimated GFR 91.83 (mL/min/1.73m2); Glucose 79 mg/dL (74-106); Potassium 4.2 mmol/L (3.5-5.1); Sodium 143 mmol/L (136-145); Total Protein 6.5 g/dL (6.4-8.2)
== END 2024-02-20 23:59 | disposition home or self-care (01) ==
LOC: INF 10:30
PROVIDERS: PCP Family Medicine; Visit Provider Internal Medicine
DX: C50.511 Malignant neoplasm of lower-outer quadrant of right female breast (principal); Z45.2 Encounter for adjustment and management of vascular access device; Z17.0 Estrogen receptor positive status [ER+]
CPT/HCPCS: 36591; 80053; 85025